=== PATIENT | female | born 2005 | race Caucasian/White ===

== ENCOUNTER 2023-05-22 13:09 | Outpatient (REF) | payer BC, OTHER, SELFPAY ==
--- NOTE | ~2023-05-22 | MR_ITS ---
EXAMINATION: MR KNEE WITHOUT CONTRAST, LEFT CLINICAL INFORMATION: Pain. Hyperextension injury (05/09/2023) with medial/anterior pain. COMPARISON: None available. TECHNIQUE: MRI of the knee without contrast was performed using routine sequences on a high-field scanner. FINDINGS: MENISCI: Medial Meniscus: Intact Lateral Meniscus: Intact LIGAMENTS: Cruciate: Intact Collateral: Intact EXTENSOR MECHANISM: Intact ARTICULAR CARTILAGE/BONE: Patellofemoral Compartment: There is a thin medial plica crossing the medial trochlear facet measuring 1 mm in thickness. No surrounding edema signal. Patellar and trochlear cartilage are normal. Normal trochlear morphology. There is an osseous contusion at the anterior margin of the medial femoral condyle deep to the medial trochlear facet. No fracture line. Medial Compartment: There is an osseous contusion at the anteromedial margin of the medial tibial plateau. No fractures. Articular cartilage at the medial tibial plateau and medial femoral condyle is normal. Lateral Compartment: There is a small osseous contusion at the anteromedial margin of the lateral tibial plateau just anterior to the anterior roots of the lateral meniscus. No fractures. Articular cartilage is normal. JOINT FLUID AND BURSAE: No joint effusion or bursitis. MR/MR knee LT wo con IMPRESSION: 1. Osseous contusions at the anteromedial margin of the medial femoral condyle and anteromedial margin of the lateral tibial plateau. No fractures. 2. Intact ligaments and menisci.
== END 2023-05-22 13:10 | disposition home or self-care (01) ==
LOC: HO.MRI 13:09
PROVIDERS: Visit Provider Family Medicine
DX: M25.562 Pain in left knee (principal)
CPT/HCPCS: 73721